=== PATIENT | male | born 1940 | race Caucasian/White ===

== ENCOUNTER 2024-01-05 11:12 | Emergency (ER) | payer MEDICARE, OTHER, SELFPAY ==
[2024-01-05 11:15] VITALS: BP 159/109
--- NOTE | 2024-01-05 11:28 | ED.GENMED ---
History of Present Illness
<Rodolfo Gottlieb PA-C - Last Filed: 01/05/24 15:22>
General
Chief Complaint: Urinary Symptoms
Time Seen by Provider: 01/05/24 11:19
Travel History
Have you had any contact with someone who has COVID-19?: No
Do you have any symptoms of coronavirus? Fever > 100 degrees, chills, cough, shortness of breath, sore throat, loss of taste or smell, muscle aches, or headache?: No
History of Present Illness
History of Present Illness:
83-year-old male with history of hypertension and hyperlipidemia presents to the emergency department for evaluation urinary retention beginning overnight. States he had no nocturia or urinary dribbling prior to this. Unable to void any urine even
a small amount. Denies any fevers or chills. No history of urinary retention or known BPH
Past History
<Rodolfo Gottlieb PA-C - Last Filed: 01/05/24 15:22>
Past History
ED Past Medical History: HTN, Hypercholesterolemia and Other (Rheumatoid arthritis)
ED Past Surgical History: Other (Hernia repair)
Social History
Tobacco: Non-smoker
Drug: None
Personal:
Review of Systems
<Rodolfo Gottlieb PA-C - Last Filed: 01/05/24 15:22>
Review of Systems
Allergies reviewed?: Yes
All Other Systems: ROS reviewed and negative except as documented in HPI and ROS
Phy Exam
<Rodolfo Gottlieb PA-C - Last Filed: 01/05/24 15:22>
Physical Exam
Physical Exam:
GEN: Well appearing, NAD, WDWN
HEENT: Oral mucosa moist, no scleral icterus
Cardiac: Regular rate
Lung: No respiratory distress, no tachypnea
Abdomen: Mild suprapubic
MSK: No gross deformity or injuries
Skin: Good color, no pallor or jaundice, no rashes
Neuro: AO x3, moves all extremities freely
Psych: Calm, cooperative
Course
<Rodolfo Gottlieb PA-C - Last Filed: 01/05/24 15:22>
Orders/Labs/Results
Orders:
Orders
01/05/24 11:22
Bladder Scan- Treatment ONCE
01/05/24 11:28
Nuñez Placement- Treatment ONCE
Reason for insertion: Acute Retention
01/05/24 11:42
Lidocaine 2% [Lidocaine Uro-Jet 2%] 1 syringe .ROUTE .[facility]
01/05/24 12:53
UROLOGY CONSULT Urgent
Consulting Provider: James Garcia
Was physician already notified: Yes
01/05/24 13:46
Urinalysis Reflex To Culture Urgent
Date Specimen was Collected: 01/05/24
Time Specimen was Collected: 13:41
Urine Microscopic Reflex Cult Urgent
Abnormal Lab Results
01/05/24
13:46
Ur Occult Blood Reflex 1+ A
(Negative)
Urine RBC 7-10 A /HPF
(0-2)
Urine Bacteria (Reflex) Few A
(Negative)
Vital Signs
Initial and Last Documented VS:
Initial Vital Signs
Temp Pulse Resp BP Pulse Ox
98.2 F 96 16 159/109 96
01/05/24 11:15 01/05/24 11:15 01/05/24 11:15 01/05/24 11:15 01/05/24 11:15
Last Documented Vital Signs
Temp Pulse Resp BP Pulse Ox
98.2 F 86 18 165/97 98
01/05/24 11:15 01/05/24 14:26 01/05/24 14:26 01/05/24 14:26 01/05/24 14:26
<Dwayne Barragan MD - Last Filed: 01/05/24 12:22>
Orders/Labs/Results
Orders:
Orders
01/05/24 11:22
Bladder Scan- Treatment ONCE
01/05/24 11:28
Nuñez Placement- Treatment ONCE
Reason for insertion: Acute Retention
01/05/24 11:42
Lidocaine 2% [Lidocaine Uro-Jet 2%] 1 syringe .ROUTE .[facility]
01/05/24 12:53
UROLOGY CONSULT Urgent
Consulting Provider: James Garcia
Was physician already notified: Yes
01/05/24 13:46
Urinalysis Reflex To Culture Urgent
Date Specimen was Collected: 01/05/24
Time Specimen was Collected: 13:41
Urine Microscopic Reflex Cult Urgent
Abnormal Lab Results
01/05/24
13:46
Ur Occult Blood Reflex 1+ A
(Negative)
Urine RBC 7-10 A /HPF
(0-2)
Urine Bacteria (Reflex) Few A
(Negative)
Vital Signs
Initial and Last Documented VS:
Initial Vital Signs
Temp Pulse Resp BP Pulse Ox
98.2 F 96 16 159/109 96
01/05/24 11:15 01/05/24 11:15 01/05/24 11:15 01/05/24 11:15 01/05/24 11:15
Last Documented Vital Signs
Temp Pulse Resp BP Pulse Ox
98.2 F 86 18 165/97 98
01/05/24 11:15 01/05/24 14:26 01/05/24 14:26 01/05/24 14:26 01/05/24 14:26
<Rodolfo Gottlieb PA-C - Last Filed: 01/05/24 15:22>
MDM/Problems Addressed
MDM/Problems Addressed:
Multiple attempts at Nuñez placement remain in the emergency department by nursing staff, myself, Dr. Barragan. We were unsuccessful in passing the Nuñez and thus urology was consulted and was able to pass 60 send Nuñez catheter using introducer
patient did have significant urethral bleeding postprocedure due to multiple attempts however this eventually improved. Greater than 1500 cc of urine was drained from the bladder with Nuñez placement. Patient be discharged on Flomax and will
follow-up as an outpatient with urology, started on empiric antibiotics due to the repetitive trauma
<Rodolfo Gottlieb PA-C - Last Filed: 01/05/24 15:22>
*Critical Care Note
Total Time (30-74mins, 75-104mins- exclusive of procedures): Not Applicable
ED Attending Note
<Rodolfo Gottlieb PA-C - Last Filed: 01/05/24 15:22>
-
Portions of this chart may have been created with voice recognition software.� Occasional wrong word or��sound alike� substitutions may have occurred due to the inherent limitations of voice recognition software.
<Dwayne Barragan MD - Last Filed: 01/05/24 12:22>
ED Attending Note
Patient seen and examined by attending physician: Yes
ED Attending Note:
I have seen and evaluated the patient with a [id number] encounter. I have spoken to the advance practicer provider and involved in the medical history, the physical exam, medical decision making.
Evaluation and management service: agree unless noted differently below.
Results interpretation: agree unless noted differently below.
Focused HPI: 83-year-old male with history as documented presents for evaluation of urinary retention. Patient reports that he has been unable to urinate since around 1 AM. He says he is having increasing abdominal pressure in the suprapubic
region. Came to the emergency room for assessment. He denies any history of prostate issues and has never seen a urologist. No fevers or chills or any other symptoms.
Physical exam: Awake and alert not in distress. Palpable bladder with mild suprapubic tenderness. Bladder scan shows almost a liter of retained urine.
Medical Decision Makin-year-old male presents to the emergency room with acute urinary retention. Approximately 1 L of retained urine on bladder scan. Nurse x 2 attempted to pass catheter unsuccessfully. Physicians clinical trials assistant attempted
unsuccessfully. I personally attempted x 2 unsuccessfully using both coud� tip and silicon catheter. PA discussed with urology to come to bedside to place Nuñez catheter.
Discharge Plan
Departure
Patient Disposition: Home (Routine Discharge)
Date of Disposition: 01/05/24
Time of Disposition: 13:55
Patient with high blood pressure during this ER visit?: No
Discharge Problem:
Hyperplasia of prostate with urinary retention
Instructions: Urinary retention - Discharge instructions
Prescriptions:
New
tamsulosin [Flomax] 0.4 mg capsule
0.4 mg PO HS Qty: 30 0RF
cephalexin 500 mg capsule
500 mg PO Q8H 7 Days Qty: 21 0RF
No Action
simvastatin 40 MG tablet
40 mg PO QPM
methotrexate sodium 2.5 MG tablet
3 tab PO SA
folic acid 1 MG tablet
1 mg PO DAILY
hydrochlorothiazide 12.5 MG tablet
12.5 mg PO DAILY
naproxen sodium [Aleve] 220 mg Capsule
220 mg PO BID PRN (Reason: pain)
Men's 50 Plus Multivitamin 400-20-370 mcg Tablet
1 tab PO DAILY
aspirin 81 mg capsule
81 mg PO DAILY Qty: 90 0RF
Referrals:
James Garcia MD [Active] -
Feliz Santiago MD [Family Provider] -
Interventions
Interventions:
*Risk Screen - Suicide Last Done: 01/05/24 11:15
*General Assessment Last Done: 01/05/24 11:15
*Neglect/Abuse Screening Last Done: 01/05/24 11:15
ED- Fall Risk Assessment Last Done: 01/05/24 14:30
*ED COVID-19 Vaccine History Last Done: 01/05/24 11:15
*Nursing Disposition Last Done: 01/05/24 14:30
ED-Male Genitourinary Assessment Last Done: 01/05/24 12:25
Discharge Date and Time
Discharge Date/Time: 01/05/24 14:30
Print Language: KYRGYZ
[2024-01-05 14:00] LABS: Urine Albumin Negative (Neg - Trace); Urine Bilirubin Negative (Negative); Urine Character Clear (Clear); Urine Color Yellow; Urine Glucose Negative (Negative); Urine Ketone Negative (Negative); Urine Leukocyte Negative (Negative); Urine Nitrite Negative (Negative); Urine Occult Blood 1+ (Negative); Urine Urobilinogen Negative (Neg - 1+)
[2024-01-05 14:26] VITALS: BP 165/97
[2024-01-05 14:37] LABS: Urine Bacteria Few (Negative)
--- NOTE | 2024-01-05 17:53 | W.PN.URO.CBU ---
Today's Communication / Plan
-
home with rob
Assessment / Plan
-
rob placed leave rob appt as outpatient for viding trial
Diagnosis
-
Date of Service: January 05, 2024
-
Patient Diagnosis:bph difficult rob retention
Post Op Day:
Subjective
-
cannot covid
Objective
-
Vital Signs
Temp Pulse Resp BP Pulse Ox
98.2 F 86 18 165/97 98
01/05/24 11:15 01/05/24 14:26 01/05/24 14:26 01/05/24 14:26 01/05/24 14:26
Review of Systems
-
: Difficulty Voiding
Physical Exam
-
General - well developed, well nourished, no acute distress
Chest - clear bilaterally
Abdomen - soft, non-tender, positive bowel sounds, no CVAT, no incisional pain or distention
Genitalia - normal
Rectal - normal
Skin - warm & dry with no rash
Neuro - AOx3, no motor deficits
Extremities - no clubbing, no cyanosis, no edema
Incision - clean, dry
Dressing - clean, dry, intact
Care Review
Data Reviewed
Discussed with: Nursing, Family and Other (er doctor)
Ultrasound: Image Pers Reviewed
== END 2024-01-05 14:30 | disposition home or self-care (01) ==
LOC: EMR 11:12
PROVIDERS: Physician Assistant; CONSULT PHYSICIAN Specialist; EMERGENCY PHYSICIAN Emergency Medicine; FAMILY PHYSICIAN Family Medicine
DX: N40.1 Benign prostatic hyperplasia with lower urinary tract symptoms (principal); I10 Essential (primary) hypertension; E78.00 Pure hypercholesterolemia, unspecified; K59.00 Constipation, unspecified; M06.9 Rheumatoid arthritis, unspecified; Z79.899 Other long term (current) drug therapy
CPT/HCPCS: 99282; 51702; 81003; 81015

== ENCOUNTER → 2025-05-04 11:01 | Outpatient (REF) | payer MEDICARE, OTHER, SELFPAY | LOC: HWRAD 11:01 | PROVIDERS: ATTENDING PHYSICIAN Family Medicine | DX: M54.42 Lumbago with sciatica, left side (principal) | CPT/HCPCS: 72110 ==